=== PATIENT | male | born 1940 | race Caucasian/White ===

== ENCOUNTER 2017-06-06 16:53 | Inpatient (IN) | payer MEDICARE, MEDICAID ==
[2017-06-06] VITALS (7 sets, daily range): BP systolic 149–173; BP diastolic 77–94
[~2017-06-06] VITALS: Ht 175.3 cm; Wt 67.0 kg
[2017-06-06] MEDS ORDERED: ondansetron/PF 4mg/2ml inj IV ONE (17:20)
[2017-06-06] MEDS ORDERED: normal saline 1000ML IV soln IVB ONE (17:20)
[2017-06-06 18:20] LABS: ALANINE AMINOTRANSFERASE 30 U/L (12-78); ALBUMIN 4.3 G/DL (3.4-5.0); ALBUMIN/GLOBULIN RATIO 0.9 (1.1-1.5); ALKALINE PHOSPHATASE 114 IU/L (46-116); ANION GAP 8 (8-16); ASPARTATE AMINO TRANSFERASE 25 U/L (10-37); BILIRUBIN,TOTAL 1.1 MG/DL (0.1-1.0); BLOOD UREA NITROGEN 22 MG/DL (7-18); CHLORIDE 100 MMOL/L (99-107); GLUCOSE 133 MG/DL (70-104); LIPASE 129 U/L (73-393); SODIUM 138 MMOL/L (135-145); TOTAL PROTEIN 9.1 G/DL (6.4-8.2); eGFR 73 ML/MIN
[2017-06-06 18:26] LABS: BASOPHILS % (AUTO) 0.3 % (0-1); EOSINOPHILS # (AUTO) 0.1 X10'3 (0-0.9); EOSINOPHILS % (AUTO) 1.1 % (0-6); HEMATOCRIT 46.6 % (42.0-52.0); HEMOGLOBIN 15.9 g/dl (14.0-17.9); LYMPHOCYTES # (AUTO) 1.3 X10'3 (1.1-4.8); LYMPHOCYTES % (AUTO) 15.1 % (21-51); MEAN CORPUSCULAR HEMOGLOBIN 42.5 PG (27.0-31.0); MEAN CORPUSCULAR VOLUME 124.8 FL (78-98); MONOCYTES # (AUTO) 0.5 X10'3 (0-0.9); MONOCYTES % (AUTO) 5.5 % (2-12); NEUTROPHILS # (AUTO) 6.8 X10'3 (1.8-7.7); PLATELET COUNT 201 X10'3 (140-440); RED BLOOD COUNT 3.73 X10'6 (4.70-6.10); RED CELL DISTRIBUTION WIDTH 14.5 % (11.5-14.5); WHITE BLOOD COUNT 8.8 X10'3 (4.5-11.0)
[2017-06-06 18:37] LABS: PLATELET ESTIMATE NORMAL
[2017-06-06] MEDS ORDERED: ceFAZolin inj. 2,000 MG in dextrose 5%-water 50ml 50 ML IV ONE (18:50)
[2017-06-06] MEDS ORDERED: ceFAZolin 2gm in dextrose, iso 100 ML IV ONE (19:05)
[2017-06-06 20:35] LABS: INR 0.9 INR; PARTIAL THROMBOPLASTIN TIME 25 SECONDS (22-32); PROTHROMBIN TIME 9.8 SECONDS (9.0-12.0)
[2017-06-06] MEDS ORDERED: BUPIVAcaine/PF 2.5 mg/ml (0.25%) 30ml vial ONE (21:07)
[2017-06-06] MEDS ORDERED: LIDOcaine 1% 30ml vial 30 ML ONE (21:07)
[2017-06-06] MEDS ORDERED: ringers solution, lacted 1,000 ML IV SCH (21:09)
[2017-06-06] MEDS ORDERED: meperidine/PF 25mg/ml syringe IV PRN ×3 (21:10)
[2017-06-06] MEDS ORDERED: ondansetron/PF 4mg/2ml inj IV PRN ×3 (21:10→22:50)
[2017-06-06] MEDS ORDERED: proCHLORperazine 10 MG/2 ml inj IV PRN (21:10)
[2017-06-06] MEDS ORDERED: sevoflurane 250ml liquid IH ONE (21:16)
[2017-06-06] MEDS ORDERED: midazolam 2 mg/2 ml injection ONE (21:18)
[2017-06-06] MEDS ORDERED: propofol inj 20 ML IV ONE (21:18)
[2017-06-06] MEDS ORDERED: rocuronium 10mg/ml inj IV ONE (21:18)
[2017-06-06] MEDS ORDERED: fentaNYL/PF 50MCG/1 ML 2ML syringe ONE (21:18)
[2017-06-06] MEDS ORDERED: acetaminophen 325mg tablet PO PRN ×2 (21:25)
[2017-06-06] MEDS ORDERED: mag hydrox/Alum hydrox/simeth 30ml oral suspension PO PRN (21:25)
[2017-06-06] MEDS ORDERED: magnesium hydroxide 30ml (MOM) UD suspension PO PRN (21:25)
[2017-06-06] MEDS ORDERED: glycopyrrolate 0.2mg/ml inj ONE (22:27)
[2017-06-06] MEDS ORDERED: neostigmine methylsulfate 1 MG/ML 10ml vial ONE (22:29)
[2017-06-06] MEDS: Potassium Cl inj 20 MEQ in ringers solution, lacted 1,000 ML IV SCH (22:47)
[2017-06-06] MEDS ORDERED: CADD PCA waste documentation MC PRN (22:50)
[2017-06-06] MEDS ORDERED: naloxone 0.4 mg/ml inj IV PRN (22:50)
[2017-06-06] MEDS: HYDROmorphone/NS 1 mg/ml CADD 50 ML IV SCH ×2 (23:00→23:59)
[2017-06-07] VITALS (11 sets, daily range): BP systolic 106–149; BP diastolic 65–79
[2017-06-07] MEDS: HYDROmorphone/NS 1 mg/ml CADD 50 ML IV SCH ×7 (01:00→13:00)
[2017-06-07] MEDS: normal saline 1000ml 1,000 ML IV SCH ×2 (01:44→11:55)
[2017-06-07 05:02] LABS: BASOPHILS % (AUTO) 0.2 % (0-1); EOSINOPHILS # (AUTO) 0.1 X10'3 (0-0.9); EOSINOPHILS % (AUTO) 0.9 % (0-6); HEMATOCRIT 38.9 % (42.0-52.0); HEMOGLOBIN 13.1 g/dl (14.0-17.9); LYMPHOCYTES # (AUTO) 1.4 X10'3 (1.1-4.8); LYMPHOCYTES % (AUTO) 14.4 % (21-51); MEAN CORPUSCULAR HEMOGLOBIN 42.9 PG (27.0-31.0); MEAN CORPUSCULAR HGB CONC 33.8 % (33.0-36.5); MEAN CORPUSCULAR VOLUME 126.8 FL (78-98); MEAN PLATELET VOLUME 8.9 FL (7.4-10.4); MONOCYTES # (AUTO) 0.7 X10'3 (0-0.9); NEUTROPHILS # (AUTO) 7.7 X10'3 (1.8-7.7); NEUTROPHILS % (AUTO) 77.5 % (42-75); PLATELET COUNT 189 X10'3 (140-440); RED BLOOD COUNT 3.07 X10'6 (4.70-6.10); RED CELL DISTRIBUTION WIDTH 15.3 % (11.5-14.5); WHITE BLOOD COUNT 9.9 X10'3 (4.5-11.0)
[2017-06-07 05:22] LABS: ALANINE AMINOTRANSFERASE 68 U/L (12-78); ALBUMIN 3.1 G/DL (3.4-5.0); ALBUMIN/GLOBULIN RATIO 0.9 (1.1-1.5); ALKALINE PHOSPHATASE 82 IU/L (46-116); ANION GAP 4 (8-16); ASPARTATE AMINO TRANSFERASE 63 U/L (10-37); BILIRUBIN,TOTAL 0.9 MG/DL (0.1-1.0); BLOOD UREA NITROGEN 19 MG/DL (7-18); BUN/CREATININE RATIO 18.6 (5.4-32.0); CALCIUM 8.5 MG/DL (8.5-10.1); CHLORIDE 106 MMOL/L (99-107); CREATININE 1.02 MG/DL (0.60-1.10); GLUCOSE 104 MG/DL (70-104); SODIUM 141 MMOL/L (135-145); TOTAL PROTEIN 6.5 G/DL (6.4-8.2); eGFR 71 ML/MIN
[2017-06-07] MEDS: Potassium Cl inj 20 MEQ in ringers solution, lacted 1,000 ML IV SCH ×2 (06:52→14:57)
[2017-06-07] MEDS ORDERED: BACL10TA PO (07:40)
[2017-06-07] MEDS ORDERED: OMEP40CA37 PO (07:40)
[2017-06-07] MEDS ORDERED: LOPI1TAB2 PO (07:40)
[2017-06-07] MEDS ORDERED: LAMI1TAB PO (07:40)
[2017-06-07] MEDS ORDERED: MIRT15TA10 PO (07:40)
[2017-06-07] MEDS ORDERED: enoxaparin 40mg/0.4ml syringe SUBCUT SCH (16:00)
[2017-06-07] MEDS: cefTRIAXone 1g/NS 100ml IVPB 100 ML IV SCH (16:25)
[2017-06-07] MEDS: RITONAVIR PO SCH (20:00)
[2017-06-07] MEDS: LOPINAVIR PO SCH (20:00)
[2017-06-07] MEDS: baclofen 10mg tablet PO SCH (20:05)
[2017-06-07] MEDS ORDERED: mirtazapine 15mg tablet PO SCH (21:00)
[2017-06-07] MEDS: HYDROcodone/acetaminophen 10/325mg tab PO PRN (23:19)
[2017-06-08] VITALS: BP 127/69
[2017-06-08] MEDS: Potassium Cl inj 10 MEQ in normal saline 1000ml 1,000 ML IV SCH ×3 (01:09→12:19)
[2017-06-08] MEDS: HYDROcodone/acetaminophen 10/325mg tab PO PRN ×2 (05:38→09:23)
[2017-06-08 05:42] LABS: ALBUMIN 2.7 G/DL (3.4-5.0); ANION GAP 5 (8-16); BLOOD UREA NITROGEN 17 MG/DL (7-18); CALCIUM 8.2 MG/DL (8.5-10.1); CHLORIDE 107 MMOL/L (99-107); CREATININE 0.85 MG/DL (0.60-1.10); GLUCOSE 97 MG/DL (70-104); POTASSIUM 3.7 MMOL/L (3.5-5.1); SODIUM 139 MMOL/L (135-145); TOTAL CARBON DIOXIDE 27.2 MMOL/L (24-32); eGFR 88 ML/MIN
[2017-06-08] MEDS ORDERED: pantoprazole 40mg Tablet.DR PO SCH (07:30)
[2017-06-08 08:00] VITALS: BP 127/73
[2017-06-08] MEDS: cefTRIAXone 1g/NS 100ml IVPB 100 ML IV SCH (08:12)
[2017-06-08] MEDS: baclofen 10mg tablet PO SCH (08:12)
[2017-06-08] MEDS: LOPINAVIR PO SCH (11:10)
[2017-06-08] MEDS: RITONAVIR PO SCH (11:10)
[2017-06-08 12:06] VITALS: BP 134/90
[2017-06-08 12:26] LABS: ALANINE AMINOTRANSFERASE 68 U/L (12-78); ALBUMIN/GLOBULIN RATIO 0.8 (1.1-1.5); ALKALINE PHOSPHATASE 70 IU/L (46-116); ASPARTATE AMINO TRANSFERASE 49 U/L (10-37); BILIRUBIN,TOTAL 0.9 MG/DL (0.1-1.0); TOTAL PROTEIN 5.9 G/DL (6.4-8.2)
[2017-06-08] MEDS ORDERED: LOPINAVIR PO SCH (16:08)
[2017-06-08] MEDS ORDERED: RITONAVIR PO SCH (16:08)
[2017-06-08] MEDS ORDERED: OXYC-145 PO (16:29)
[2017-06-09] MEDS ORDERED: LACTOBACILLUS RHAMNOSUS GG 15 billion unit sprinkle caps PO SCH (07:30)
== END 2017-06-08 18:04 | disposition home or self-care (01) | DRG 419 ==
LOC: ER 16:54 → SUR 3N 21:25
PROVIDERS: ADMIT Internal Medicine; ATTEND Surgery
PROC: 0FB44ZZ Excision of Gallbladder, Percutaneous Endoscopic Approach (ICD-10-PCS; principal; 2017-06-06 21:16)
DX: K80.00 Calculus of gallbladder with acute cholecystitis without obstruction (principal); E86.0 Dehydration; I10 Essential (primary) hypertension; F12.90 Cannabis use, unspecified, uncomplicated; Z79.899 Other long term (current) drug therapy
CPT/HCPCS: 36415; 71045; 80053; 82607; 82746; 83605; 83690; 85025; 85610; 85730; 86885; 86900; 86901; 87040; 87070; 93005; 96361; 96374; 96375; 99285; A6449; A7000; J0690; J0696; J1170; J2175; J2250; J2270; J2405; J2704; J2710; J3010; J3480; J3490; J7030; J7120

== ENCOUNTER → 2017-06-06 | Outpatient (CLI) | payer MEDICARE, MEDICAID ==
[~2017-06-06] MED LIST: BACL10TA PO; LAMI1TAB PO; LOPI1TAB2 PO; MIRT15TA10 PO; OMEP40CA37 PO; OXYC-145 PO
== END ==
LOC: RAD 09:16
PROVIDERS: ATTEND Nurse Practitioner
DX: K81.0 Acute cholecystitis (principal); R10.9 Unspecified abdominal pain
CPT/HCPCS: 76700

== ENCOUNTER 2017-07-30 17:55 | Inpatient (IN) | payer MEDICARE, MEDICAID ==
[~2017-07-30] VITALS: Ht 175.3 cm; Wt 64.2 kg
[2017-07-30] MEDS ORDERED: ondansetron 4mg rapidly disintigrating tab PO ONE (18:40)
[2017-07-30 19:12] LABS: BASOPHILS % (AUTO) 0.3 % (0-1); EOSINOPHILS % (AUTO) 0.5 % (0-6); HEMATOCRIT 41.9 % (42.0-52.0); HEMOGLOBIN 14.5 g/dl (14.0-17.9); LYMPHOCYTES # (AUTO) 1.8 X10'3 (1.1-4.8); LYMPHOCYTES % (AUTO) 18.9 % (21-51); MEAN CORPUSCULAR HEMOGLOBIN 42.5 PG (27.0-31.0); MEAN CORPUSCULAR HGB CONC 34.6 % (33.0-36.5); MEAN CORPUSCULAR VOLUME 122.9 FL (78-98); MEAN PLATELET VOLUME 8.2 FL (7.4-10.4); MONOCYTES # (AUTO) 0.7 X10'3 (0-0.9); MONOCYTES % (AUTO) 7.2 % (2-12); NEUTROPHILS # (AUTO) 6.8 X10'3 (1.8-7.7); NEUTROPHILS % (AUTO) 73.1 % (42-75); PLATELET COUNT 275 X10'3 (140-440); RED BLOOD COUNT 3.41 X10'6 (4.70-6.10); RED CELL DISTRIBUTION WIDTH 15.6 % (11.5-14.5); WHITE BLOOD COUNT 9.3 X10'3 (4.5-11.0)
[2017-07-30 19:23] LABS: PROTHROMBIN TIME 10.4 SECONDS (9.0-12.0)
[2017-07-30 19:27] LABS: ALANINE AMINOTRANSFERASE 41 U/L (12-78); ALBUMIN 4.2 G/DL (3.4-5.0); ALBUMIN/GLOBULIN RATIO 0.9 (1.1-1.5); ALKALINE PHOSPHATASE 111 IU/L (46-116); ANION GAP 16 (8-16); ASPARTATE AMINO TRANSFERASE 81 U/L (10-37); BILIRUBIN,TOTAL 1.8 MG/DL (0.1-1.0); BLOOD UREA NITROGEN 21 MG/DL (7-18); BUN/CREATININE RATIO 17.9 (5.4-32.0); CALCIUM 10.2 MG/DL (8.5-10.1); CHLORIDE 99 MMOL/L (99-107); CREATININE 1.17 MG/DL (0.60-1.10); GLUCOSE 172 MG/DL (70-104); LIPASE 81 U/L (73-393); POTASSIUM 3.6 MMOL/L (3.5-5.1); SODIUM 139 MMOL/L (135-145); TOTAL CARBON DIOXIDE 23.8 MMOL/L (24-32); TOTAL PROTEIN 8.9 G/DL (6.4-8.2); eGFR 61 ML/MIN
[2017-07-30 20:00] LABS: ANISOCYTOSIS 1+; PLATELET ESTIMATE NORMAL
[2017-07-30 20:01] LABS: POLYCHROMASIA FEW
[2017-07-30] MEDS ORDERED: morphine 2 MG/ML inj. syringe IV ONE (21:35)
[2017-07-30] MEDS ORDERED: morphine 4 MG/ML inj SYRINge IV ONE (21:40)
[2017-07-30 21:53] LABS: BASOPHILS % (AUTO) 0.1 % (0-1); EOSINOPHILS # (AUTO) 0.1 X10'3 (0-0.9); EOSINOPHILS % (AUTO) 1.7 % (0-6); HEMATOCRIT 43.2 % (42.0-52.0); HEMOGLOBIN 14.9 g/dl (14.0-17.9); LYMPHOCYTES # (AUTO) 1.3 X10'3 (1.1-4.8); LYMPHOCYTES % (AUTO) 15.5 % (21-51); MEAN CORPUSCULAR HEMOGLOBIN 42.2 PG (27.0-31.0); MEAN CORPUSCULAR HGB CONC 34.5 % (33.0-36.5); MEAN CORPUSCULAR VOLUME 122.3 FL (78-98); MEAN PLATELET VOLUME 8.1 FL (7.4-10.4); MONOCYTES # (AUTO) 0.7 X10'3 (0-0.9); MONOCYTES % (AUTO) 7.7 % (2-12); NEUTROPHILS # (AUTO) 6.5 X10'3 (1.8-7.7); PLATELET COUNT 259 X10'3 (140-440); RED BLOOD COUNT 3.53 X10'6 (4.70-6.10); RED CELL DISTRIBUTION WIDTH 15.3 % (11.5-14.5); WHITE BLOOD COUNT 8.6 X10'3 (4.5-11.0)
[2017-07-30 22:05] LABS: PARTIAL THROMBOPLASTIN TIME 23 SECONDS (22-32)
[2017-07-30] MEDS ORDERED: diphenhydrAMINE 50 mg/ml inj IV ONE (22:25)
[2017-07-30] MEDS ORDERED: proCHLORperazine 10 MG/2 ml inj IV ONE (22:25)
[2017-07-30] MEDS ORDERED: ringers solution, lactated 1000ml IV soln IV ONE (23:05)
[2017-07-30] MEDS ORDERED: famotidine/PF 10 mg/ml inj IV ONE (23:05)
[2017-07-31] MEDS: normal saline 1000ml 1,000 ML IV SCH ×3 (00:18→20:18)
[2017-07-31] MEDS ORDERED: ondansetron/PF 4mg/2ml inj IV PRN (00:20)
[2017-07-31] MEDS: piperacillin/tazo 3.375gm/50ml 50 ML IV SCH ×4 (00:25→23:15)
[2017-07-31] MEDS ORDERED: non-formulary drug (Omeprazole (Prilosec) 0.5 CAP) PO SCH (08:00)
[2017-07-31] MEDS: pantoprazole 40mg Tablet.DR PO SCH (08:00)
[2017-07-31 08:01] LABS: CLARITY,URINE CLEAR (Clear); COLOR,URINE YELLOW (Yellow); GLUCOSE, URINE NEGATIVE (Neg); KETONES,URINE NEGATIVE (Neg); LEUKOCYTE ESTERASE ,URINE NEGATIVE (Neg); NITRITES, URINE NEGATIVE (Neg); OCCULT BLOOD,URINE MODERATE (Neg); PROTEIN,URINE 100 mg/dl (Neg); UROBILINOGEN,URINE 0.2 E.U/dL (0.2-1.0)
[2017-07-31] MEDS ORDERED: ZOLP10TA5 (08:10)
[2017-07-31 08:13] LABS: UA COLLECTION TYPE CLN CATCH MIDSTREAM
[2017-07-31 08:21] LABS: WBC,URINE 0-4 /HPF (0-4)
[2017-07-31 08:22] LABS: BACTERIA,URINE NONE SEEN /HPF (Neg); RBC,URINE 0-2 /HPF (0-2); SQUAMOUS EPITHELIAL CELL,UR FEW /LPF (FEW)
[2017-07-31] MEDS: RITONAVIR PO SCH ×2 (08:52→20:58)
[2017-07-31] MEDS: LOPINAVIR PO SCH ×2 (08:52→20:58)
[2017-07-31 13:08] VITALS: BP 128/68
[2017-07-31 20:00] VITALS: BP_SYST 118; BP_SYST 129; BP_DIAS 72; BP_DIAS 84
[2017-07-31] MEDS: mirtazapine 15mg tablet PO SCH (20:58)
[2017-07-31] MEDS: heparin, porcine 5000 units/ml vial SQ SCH (20:59)
[2017-07-31] MEDS: lactobacillus rhamnosus 10,000 MMU CELLS/CAPSULE PO SCH (20:59)
[2017-07-31 23:00] VITALS: BP 126/77
[2017-07-31] MEDS: zolpidem 5mg tablet PO PRN (23:14)
[2017-08-01] MEDS: normal saline 1000ml 1,000 ML IV SCH ×2 (01:01→16:30)
[2017-08-01 05:38] LABS: BASOPHILS % (AUTO) 0.1 % (0-1); EOSINOPHILS # (AUTO) 0.1 X10'3 (0-0.9); EOSINOPHILS % (AUTO) 1.6 % (0-6); HEMATOCRIT 34.1 % (42.0-52.0); HEMOGLOBIN 11.9 g/dl (14.0-17.9); LYMPHOCYTES # (AUTO) 1.6 X10'3 (1.1-4.8); LYMPHOCYTES % (AUTO) 27.8 % (21-51); MEAN CORPUSCULAR HEMOGLOBIN 43.4 PG (27.0-31.0); MEAN CORPUSCULAR VOLUME 123.9 FL (78-98); MEAN PLATELET VOLUME 8.4 FL (7.4-10.4); MONOCYTES # (AUTO) 0.5 X10'3 (0-0.9); MONOCYTES % (AUTO) 9.3 % (2-12); NEUTROPHILS # (AUTO) 3.6 X10'3 (1.8-7.7); NEUTROPHILS % (AUTO) 61.2 % (42-75); PLATELET COUNT 197 X10'3 (140-440); RED BLOOD COUNT 2.75 X10'6 (4.70-6.10); RED CELL DISTRIBUTION WIDTH 15.2 % (11.5-14.5); WHITE BLOOD COUNT 5.8 X10'3 (4.5-11.0)
[2017-08-01 05:52] LABS: ALANINE AMINOTRANSFERASE 42 U/L (12-78); ALBUMIN 3.1 G/DL (3.4-5.0); ALBUMIN/GLOBULIN RATIO 0.9 (1.1-1.5); ALKALINE PHOSPHATASE 85 IU/L (46-116); ANION GAP 10 (8-16); ASPARTATE AMINO TRANSFERASE 83 U/L (10-37); BILIRUBIN,TOTAL 2.9 MG/DL (0.1-1.0); BLOOD UREA NITROGEN 17 MG/DL (7-18); BUN/CREATININE RATIO 14.9 (5.4-32.0); CALCIUM 8.6 MG/DL (8.5-10.1); CHLORIDE 106 MMOL/L (99-107); CREATININE 1.14 MG/DL (0.60-1.10); GLUCOSE 89 MG/DL (70-104); POTASSIUM 3.2 MMOL/L (3.5-5.1); SODIUM 145 MMOL/L (135-145); TOTAL CARBON DIOXIDE 28.6 MMOL/L (24-32); TOTAL PROTEIN 6.7 G/DL (6.4-8.2); eGFR 62 ML/MIN
[2017-08-01] MEDS: piperacillin/tazo 3.375gm/50ml 50 ML IV SCH ×3 (07:17→23:28)
[2017-08-01] MEDS: lactobacillus rhamnosus 10,000 MMU CELLS/CAPSULE PO SCH ×2 (07:17→20:34)
[2017-08-01] MEDS: pantoprazole 40mg Tablet.DR PO SCH (07:17)
[2017-08-01] MEDS: heparin, porcine 5000 units/ml vial SQ SCH ×2 (07:18→20:35)
[2017-08-01] MEDS: RITONAVIR PO SCH ×2 (07:30→20:34)
[2017-08-01] MEDS: LOPINAVIR PO SCH ×2 (07:30→20:34)
[2017-08-01 08:00] VITALS: BP_SYST 107; BP_SYST 173; BP_DIAS 65; BP_DIAS 79
[2017-08-01 11:00] VITALS: BP 107/65
[2017-08-01 11:13] LABS: PLATELET ESTIMATE NORMAL
[2017-08-01] MEDS ORDERED: potassium Cl 40MEQ/NS 500ml 500 ML IV PRN ×2 (17:10)
[2017-08-01] MEDS ORDERED: potassium Cl 20 mEq SR tablet PO PRN ×2 (17:10)
[2017-08-01 19:00] VITALS: BP_SYST 141; BP_SYST 144; BP_DIAS 72; BP_DIAS 78
[2017-08-01] MEDS: mirtazapine 15mg tablet PO SCH (20:34)
[2017-08-01] MEDS: morphine 4 MG/ML inj SYRINge IV PRN (21:48)
[2017-08-01] MEDS: zolpidem 5mg tablet PO PRN (23:28)
[2017-08-02] VITALS: BP_SYST 123; BP_SYST 153; BP_DIAS 62; BP_DIAS 66
[2017-08-02] MEDS: normal saline 1000ml 1,000 ML IV SCH ×3 (02:18→21:34)
[2017-08-02 04:32] LABS: BASOPHILS % (AUTO) 0.3 % (0-1); EOSINOPHILS # (AUTO) 0.1 X10'3 (0-0.9); EOSINOPHILS % (AUTO) 2.7 % (0-6); HEMATOCRIT 32.9 % (42.0-52.0); HEMOGLOBIN 11.5 g/dl (14.0-17.9); LYMPHOCYTES # (AUTO) 1.5 X10'3 (1.1-4.8); MEAN CORPUSCULAR HEMOGLOBIN 42.5 PG (27.0-31.0); MEAN CORPUSCULAR HGB CONC 34.8 % (33.0-36.5); MEAN CORPUSCULAR VOLUME 121.9 FL (78-98); MEAN PLATELET VOLUME 7.8 FL (7.4-10.4); MONOCYTES # (AUTO) 0.6 X10'3 (0-0.9); MONOCYTES % (AUTO) 11.1 % (2-12); NEUTROPHILS # (AUTO) 2.7 X10'3 (1.8-7.7); NEUTROPHILS % (AUTO) 54.9 % (42-75); PLATELET COUNT 182 X10'3 (140-440); RED CELL DISTRIBUTION WIDTH 15.2 % (11.5-14.5)
[2017-08-02 04:50] LABS: ALANINE AMINOTRANSFERASE 39 U/L (12-78); ALBUMIN 2.9 G/DL (3.4-5.0); ALBUMIN/GLOBULIN RATIO 0.9 (1.1-1.5); ALKALINE PHOSPHATASE 77 IU/L (46-116); ANION GAP 8 (8-16); ASPARTATE AMINO TRANSFERASE 59 U/L (10-37); BILIRUBIN,DIRECT 0.3 MG/DL (0-0.3); BLOOD UREA NITROGEN 13 MG/DL (7-18); BUN/CREATININE RATIO 12.5 (5.4-32.0); CALCIUM 8.4 MG/DL (8.5-10.1); CHLORIDE 109 MMOL/L (99-107); CREATININE 1.04 MG/DL (0.60-1.10); GLUCOSE 91 MG/DL (70-104); MAGNESIUM 1.8 MG/DL (1.5-2.4); POTASSIUM 3.7 MMOL/L (3.5-5.1); SODIUM 144 MMOL/L (135-145); TOTAL CARBON DIOXIDE 27.1 MMOL/L (24-32); TOTAL PROTEIN 6.3 G/DL (6.4-8.2); eGFR 69 ML/MIN
[2017-08-02 07:30] VITALS: BP 140/65
[2017-08-02] MEDS: pantoprazole 40mg Tablet.DR PO SCH (08:24)
[2017-08-02] MEDS: lactobacillus rhamnosus 10,000 MMU CELLS/CAPSULE PO SCH ×2 (08:25→21:39)
[2017-08-02] MEDS: piperacillin/tazo 3.375gm/50ml 50 ML IV SCH ×2 (08:25→15:29)
[2017-08-02] MEDS: LOPINAVIR PO SCH ×2 (08:26→21:42)
[2017-08-02] MEDS: heparin, porcine 5000 units/ml vial SQ SCH ×2 (08:26→21:39)
[2017-08-02] MEDS: RITONAVIR PO SCH ×2 (08:26→21:42)
[2017-08-02] MEDS: morphine 4 MG/ML inj SYRINge IV PRN ×2 (08:28→16:12)
[2017-08-02 12:11] VITALS: BP 131/53
[2017-08-02 20:00] VITALS: BP 132/70
[2017-08-02] MEDS: mirtazapine 15mg tablet PO SCH (21:38)
[2017-08-03] VITALS: BP 149/81
[2017-08-03] MEDS: piperacillin/tazo 3.375gm/50ml 50 ML IV SCH ×2 (00:01→08:37)
[2017-08-03] MEDS: zolpidem 5mg tablet PO PRN (00:01)
[2017-08-03 05:44] LABS: BASOPHILS % (AUTO) 0.2 % (0-1); EOSINOPHILS # (AUTO) 0.2 X10'3 (0-0.9); EOSINOPHILS % (AUTO) 4.9 % (0-6); HEMATOCRIT 33.9 % (42.0-52.0); HEMOGLOBIN 11.8 g/dl (14.0-17.9); LYMPHOCYTES # (AUTO) 1.5 X10'3 (1.1-4.8); LYMPHOCYTES % (AUTO) 32.7 % (21-51); MEAN CORPUSCULAR HEMOGLOBIN 43.5 PG (27.0-31.0); MEAN CORPUSCULAR HGB CONC 34.9 % (33.0-36.5); MEAN CORPUSCULAR VOLUME 124.5 FL (78-98); MEAN PLATELET VOLUME 8.3 FL (7.4-10.4); MONOCYTES # (AUTO) 0.4 X10'3 (0-0.9); MONOCYTES % (AUTO) 9.3 % (2-12); NEUTROPHILS # (AUTO) 2.5 X10'3 (1.8-7.7); NEUTROPHILS % (AUTO) 52.9 % (42-75); PLATELET COUNT 183 X10'3 (140-440); RED BLOOD COUNT 2.72 X10'6 (4.70-6.10); RED CELL DISTRIBUTION WIDTH 15.1 % (11.5-14.5); WHITE BLOOD COUNT 4.7 X10'3 (4.5-11.0)
[2017-08-03 06:11] LABS: ALANINE AMINOTRANSFERASE 40 U/L (12-78); ALBUMIN 2.9 G/DL (3.4-5.0); ALBUMIN/GLOBULIN RATIO 0.8 (1.1-1.5); ALKALINE PHOSPHATASE 74 IU/L (46-116); ANION GAP 11 (8-16); ASPARTATE AMINO TRANSFERASE 43 U/L (10-37); BILIRUBIN,TOTAL 1.3 MG/DL (0.1-1.0); BLOOD UREA NITROGEN 9 MG/DL (7-18); BUN/CREATININE RATIO 8.5 (5.4-32.0); CALCIUM 8.6 MG/DL (8.5-10.1); CHLORIDE 108 MMOL/L (99-107); CREATININE 1.06 MG/DL (0.60-1.10); GLUCOSE 99 MG/DL (70-104); MAGNESIUM 1.8 MG/DL (1.5-2.4); POTASSIUM 3.4 MMOL/L (3.5-5.1); SODIUM 145 MMOL/L (135-145); TOTAL PROTEIN 6.4 G/DL (6.4-8.2); eGFR 68 ML/MIN
[2017-08-03 07:00] VITALS: BP 123/62
[2017-08-03] MEDS: normal saline 1000ml 1,000 ML IV SCH (08:33)
[2017-08-03] MEDS: heparin, porcine 5000 units/ml vial SQ SCH (08:37)
[2017-08-03] MEDS: pantoprazole 40mg Tablet.DR PO SCH (08:37)
[2017-08-03] MEDS: lactobacillus rhamnosus 10,000 MMU CELLS/CAPSULE PO SCH (08:37)
[2017-08-03] MEDS: LOPINAVIR PO SCH (08:40)
[2017-08-03] MEDS: RITONAVIR PO SCH (08:40)
[2017-08-03] MEDS: morphine 4 MG/ML inj SYRINge IV PRN (08:45)
[2017-08-03] MEDS ORDERED: METR500T4 PO (10:59)
[2017-08-03 11:00] VITALS: BP 134/84
== END 2017-08-03 13:30 | disposition home or self-care (01) | DRG 392 ==
LOC: ER 17:57 → ED HOLD 07-31 00:18 → SUR 3N 07-31 12:52
PROVIDERS: ADMIT Internal Medicine; ATTEND Internal Medicine
DX: R11.2 Nausea with vomiting, unspecified (principal); E86.0 Dehydration; F12.90 Cannabis use, unspecified, uncomplicated; K30 Functional dyspepsia; R91.8 Other nonspecific abnormal finding of lung field; Z90.49 Acquired absence of other specified parts of digestive tract; Z79.899 Other long term (current) drug therapy
CPT/HCPCS: 36415; 71045; 74176; 74181; 78264; 80053; 81001; 82248; 83690; 83735; 84484; 85025; 85610; 85730; 87070; 96361; 96374; 96375; 99285; A9541; J0780; J1200; J1644; J2270; J2543; J3480; J3490; J7030; J7120

== ENCOUNTER 2019-06-04 09:57 | Emergency (ER) | payer MEDICARE, MEDICAID ==
[~2019-06-04] VITALS: Ht 175.3 cm; Wt 65.9 kg
[~2019-06-04 09:57] MED LIST changes: +MIRT-66 PO; -MIRT15TA10 PO; +OMEP40CA13 PO; -OMEP40CA37 PO; +ZOLP10TA5
[2019-06-04 10:48] LABS: COLOR,URINE YELLOW (Yellow); GLUCOSE, URINE 100 mg/dl (Neg); KETONES,URINE NEGATIVE (Neg); LEUKOCYTE ESTERASE ,URINE TRACE (Neg); NITRITES, URINE POSITIVE (Neg); OCCULT BLOOD,URINE TRACE-INTACT (Neg); PROTEIN,URINE TRACE mg/dl (Neg); UROBILINOGEN,URINE 0.2 E.U/dL (0.2-1.0)
[2019-06-04 10:49] LABS: CLARITY,URINE SLIGHTLY CLOUDY (Clear); UA COLLECTION TYPE VOIDED
[2019-06-04 10:49] LABS: BASOPHILS % (AUTO) 0.3 % (0-1); EOSINOPHILS % (AUTO) 0.5 % (0-6); HEMATOCRIT 37.4 % (42.0-52.0); HEMOGLOBIN 12.8 g/dl (14.0-17.9); LYMPHOCYTES # (AUTO) 1.5 X10'3 (1.1-4.8); LYMPHOCYTES % (AUTO) 22.3 % (21-51); MEAN CORPUSCULAR HEMOGLOBIN 33.5 PG (27.0-31.0); MEAN CORPUSCULAR HGB CONC 34.2 g/dL (33.0-36.5); MEAN CORPUSCULAR VOLUME 97.9 FL (78-98); MEAN PLATELET VOLUME 9.6 FL (7.4-10.4); MONOCYTES # (AUTO) 0.8 X10'3 (0-0.9); MONOCYTES % (AUTO) 11.5 % (2-12); NEUTROPHILS # (AUTO) 4.5 X10'3 (1.8-7.7); NEUTROPHILS % (AUTO) 65.4 % (42-75); PLATELET COUNT 207 X10'3 (140-440); RED BLOOD COUNT 3.82 X10'6 (4.70-6.10); RED CELL DISTRIBUTION WIDTH 14.8 % (11.5-14.5); WHITE BLOOD COUNT 6.9 X10'3 (4.5-11.0)
[2019-06-04 11:00] LABS: ALANINE AMINOTRANSFERASE 36 U/L (12-78); ALBUMIN 3.4 G/DL (3.4-5.0); ALBUMIN/GLOBULIN RATIO 0.9 (1.1-1.5); ALKALINE PHOSPHATASE 128 IU/L (46-116); ANION GAP 9 (8-16); ASPARTATE AMINO TRANSFERASE 39 U/L (10-37); BILIRUBIN,TOTAL 0.5 MG/DL (0.1-1.0); BLOOD UREA NITROGEN 14 MG/DL (7-18); BUN/CREATININE RATIO 11.5 (5.4-32.0); CALCIUM 8.8 MG/DL (8.5-10.1); CHLORIDE 104 MMOL/L (99-107); CREATININE 1.22 MG/DL (0.60-1.10); GLUCOSE 152 MG/DL (70-104); LIPASE 277 U/L (73-393); SODIUM 142 MMOL/L (135-145); TOTAL CARBON DIOXIDE 28.7 MMOL/L (24-32); TOTAL PROTEIN 7.4 G/DL (6.4-8.2); eGFR 58 ML/MIN
[2019-06-04 11:03] LABS: HYALINE CASTS 0-3 /LPF (NEGATIVE); MUCUS STRANDS FEW /LPF (Neg); SQUAMOUS EPITHELIAL CELL,UR FEW /LPF (FEW)
[2019-06-04 11:06] LABS: BACTERIA,URINE 2+ /HPF (Neg)
[2019-06-04 11:07] LABS: AMORPHOUS PHOSPHATES 1+; RBC,URINE 0-2 /HPF (0-2)
[2019-06-04 11:08] LABS: WBC CLUMPS,URINE FEW /HPF (NEGATIVE)
[2019-06-04 12:05] VITALS: BP 142/77
[2019-06-04] MEDS ORDERED: potassium Cl 20 mEq SR tablet PO STA (13:09)
[2019-06-04] MEDS ORDERED: CEPH-572 PO (13:09)
[2019-06-04] MEDS ORDERED: cephalexin 250mg capsule PO ONE (13:10)
== END 2019-06-04 13:51 | disposition home or self-care (01) ==
LOC: ER 09:57
DX: N39.0 Urinary tract infection, site not specified (principal); E87.6 Hypokalemia; R11.2 Nausea with vomiting, unspecified; F12.90 Cannabis use, unspecified, uncomplicated; F15.90 Other stimulant use, unspecified, uncomplicated; Z79.899 Other long term (current) drug therapy; Z90.49 Acquired absence of other specified parts of digestive tract
CPT/HCPCS: 36415; 51702; 80053; 81001; 83690; 85025; 87088; 99283; 99284

== ENCOUNTER 2020-08-10 10:14 | Day surgery (SDC) | payer MEDICARE, MEDICAID ==
[2020-07-28 17:03] LABS: BASOPHILS % (AUTO) 0.7 % (0-1); EOSINOPHILS # (AUTO) 0.4 X10'3 (0-0.9); EOSINOPHILS % (AUTO) 7.2 % (0-6); LYMPHOCYTES # (AUTO) 2.1 X10'3 (1.1-4.8); LYMPHOCYTES % (AUTO) 34.4 % (21-51); MEAN CORPUSCULAR HEMOGLOBIN 33.2 PG (27.0-31.0); MEAN CORPUSCULAR HGB CONC 34.1 g/dL (33.0-36.5); MEAN CORPUSCULAR VOLUME 97.2 FL (78-98); MEAN PLATELET VOLUME 9.7 FL (7.4-10.4); MONOCYTES # (AUTO) 0.8 X10'3 (0-0.9); MONOCYTES % (AUTO) 12.4 % (2-12); NEUTROPHILS # (AUTO) 2.8 X10'3 (1.8-7.7); NEUTROPHILS % (AUTO) 45.3 % (42-75); PRE OP HEMATOCRIT 44.6 % (42.0-52.0); PRE OP HEMOGLOBIN 15.2 g/dL (14.0-17.9); PRE OP PLATELET COUNT 208 X10'3 (140-440); RED BLOOD COUNT 4.59 X10'6 (4.70-6.10); RED CELL DISTRIBUTION WIDTH 13.5 % (11.5-14.5)
[2020-07-28 17:05] LABS: PRE OP PROTIME 10.3 SECONDS (9.0-12.0)
[2020-07-28 17:08] LABS: ALBUMIN 3.7 G/DL (3.4-5.0); ALBUMIN/GLOBULIN RATIO 0.8 (1.1-1.5); ALKALINE PHOSPHATASE 132 IU/L (46-116); BLOOD UREA NITROGEN 22 MG/DL (7-18); CALCIUM 9.2 MG/DL (8.5-10.1); CHLORIDE 105 MMOL/L (99-107); CREATININE 1.22 MG/DL (0.60-1.10); PRE OP ALT 34 U/L (30-65); PRE OP ANION GAP 8 (8-16); PRE OP AST 25 U/L (10-37); PRE OP BILIRUB, TOTAL 0.8 MG/DL (0.0-1.0); PRE OP GLUCOSE 123 MG/DL (70-104); PRE OP POTASSIUM 3.7 MMOL/L (3.4-5.1); PRE OP SODIUM 141 MMOL/L (135-145); TOTAL CARBON DIOXIDE 27.8 MMOL/L (24-32); TOTAL PROTEIN 8.1 G/DL (6.4-8.2); eGFR 57 ML/MIN
[~2020-08-10] VITALS: Ht 177.8 cm; Wt 77.1 kg
[2020-08-10] VITALS (11 sets, daily range): BP systolic 131–143; BP diastolic 66–81
[~2020-08-10 10:14] MED LIST changes: +ASPI-1397 PO; +ATOR40TA72 PO; -BACL10TA PO; +BICT1TAB PO; +CARV3.122 PO; +CLOP75TA34 PO; +DOCUMENT DATE & TIME OF BETA-BLOCKER PO ONE; -LAMI1TAB PO; -LOPI1TAB2 PO; +LOSA25TA41 PO; -OMEP40CA13 PO; -OXYC-145 PO; +PANT40TA54 PO; -ZOLP10TA5; +ceFAZolin 2gm in dextrose, iso 50 ML IV ONE; +famotidine 20mg tablet PO ONE; +ringers solution, lacted 1,000 ML IV SCH
[2020-08-10] MEDS ORDERED: acetaminophen 1,000mg/100ml IV 100 ML IV ONE (12:01)
[2020-08-10] MEDS ORDERED: morphine 2 MG/ML inj. syringe IV PRN (12:40)
[2020-08-10] MEDS ORDERED: proCHLORperazine 10 MG/2 ml inj IV PRN (12:40)
[2020-08-10] MEDS ORDERED: ondansetron/PF 4mg/2ml inj IV PRN (12:40)
[2020-08-10] MEDS ORDERED: morphine 4 MG/ML inj SYRINge IV PRN (12:40)
[2020-08-10] MEDS ORDERED: meperidine/PF 25mg/ml syringe IV PRN ×3 (12:40)
[2020-08-10] MEDS ORDERED: ringers solution, lacted 1,000 ML IV SCH (12:40)
[2020-08-10] MEDS ORDERED: LIDOcaine 1% 30ml preserv. free vial ONE (12:52)
[2020-08-10] MEDS ORDERED: BUPIVAcaine/PF 2.5 mg/ml (0.25%) 30ml vial ONE (12:52)
[2020-08-10] MEDS ORDERED: fentaNYL/PF 50MCG/1 ML 2ML syringe ONE (13:12)
[2020-08-10] MEDS ORDERED: midazolam 1 mg/ML 2ml injection ONE (13:12)
[2020-08-10] MEDS ORDERED: propofol inj 20 ML IV ONE (13:15)
[2020-08-10] MEDS ORDERED: LIDOcaine 2% (20mg/ml) 5ml vial ONE (13:15)
[2020-08-10] MEDS ORDERED: rocuronium 10mg/ml inj IV ONE (13:23)
[2020-08-10] MEDS ORDERED: ondansetron/PF 4mg/2ml inj ONE (13:24)
[2020-08-10] MEDS ORDERED: dexamethasone sod phosphate 4mg/ml inj. ONE (13:24)
[2020-08-10] MEDS ORDERED: HYDROcodone/acetaminophen 5mg/325mg tablet PO PRN ×2 (14:25)
--- NOTE | 2020-08-10 14:35 | NUR ---
Received from OR via BED , accompanied by Anesthesiologist DR FONG and report given by Anesthesiolgist. PATIENT WAKING UP, DENIES PAIN, V/S WNL, NEUROVASCULAR CHECKS INTACT, 20G PIV RUE, SCD ON, BANDAIDS TO LAP SIGHTS OF ABDOMEN CDI.
--- NOTE | 2020-08-10 14:35 | NUR ---
CORRECTION, PATIENT C/O PAIN 12/04 TO ABDOMNE SEE EMAR
--- NOTE | 2020-08-10 16:45 | NUR ---
PATIENT a&ox4, DENIES PAIN, V/S WNL, NEUROVASCULAR CHECKS INTACT, 20G PIV RUE d/c, SCD Off, BANDAIDS TO LAP SIGHTS OF ABDOMEN CDI. patient was unable to void after bladder scan for 350, f/c placed per dr mays orders, patient given education of f/c care and maintanance and verbalized understanding. patient given d/c education and f/c care handout and script for pain and verbalized understanding and was d/c home with all belongings. he was instructed to come back to dr higginbotham office in 24 hours for f/c removal in office.
== END 2020-08-10 16:45 | disposition home or self-care (01) ==
LOC: PAS 10:14
PROVIDERS: ATTEND Surgery
DX: K40.90 Unilateral inguinal hernia, without obstruction or gangrene, not specified as recurrent (principal); K42.9 Umbilical hernia without obstruction or gangrene; K21.9 Gastro-esophageal reflux disease without esophagitis; I10 Essential (primary) hypertension; J44.9 Chronic obstructive pulmonary disease, unspecified; I25.10 Atherosclerotic heart disease of native coronary artery without angina pectoris; F12.90 Cannabis use, unspecified, uncomplicated; E78.5 Hyperlipidemia, unspecified; I25.2 Old myocardial infarction; F32.9 Major depressive disorder, single episode, unspecified; M19.90 Unspecified osteoarthritis, unspecified site; Z95.5 Presence of coronary angioplasty implant and graft; Z87.442 Personal history of urinary calculi; Z79.899 Other long term (current) drug therapy; Z20.822 Contact with and (suspected) exposure to COVID-19; Z90.49 Acquired absence of other specified parts of digestive tract; Z79.01 Long term (current) use of anticoagulants; Z79.82 Long term (current) use of aspirin; Z91.030 Bee allergy status; Z88.5 Allergy status to narcotic agent
CPT/HCPCS: 36415; 49585; 49650; 80053; 82948; 85025; 85610; 85730; 87635; 93005; C1781; J0131; J1100; J2001; J2175; J2250; J2405; J2704; J3010; J3490; J7120; A4215; A4618; A7000

== ENCOUNTER 2020-08-11 08:29 | Emergency (ER) | payer MEDICARE, MEDICAID ==
[~2020-08-11] VITALS: Ht 175.3 cm; Wt 68.2 kg
[~2020-08-11 08:29] MED LIST changes: -DOCUMENT DATE & TIME OF BETA-BLOCKER PO ONE; -ceFAZolin 2gm in dextrose, iso 50 ML IV ONE; -famotidine 20mg tablet PO ONE; -ringers solution, lacted 1,000 ML IV SCH
[2020-08-11 10:28] VITALS: BP 116/77
== END 2020-08-11 11:00 | disposition home or self-care (01) ==
LOC: ER 08:29
DX: S37.39XA Other injury of urethra, initial encounter (principal); R45.1 Restlessness and agitation; Z79.82 Long term (current) use of aspirin; Z79.899 Other long term (current) drug therapy; Y73.1 Therapeutic (nonsurgical) and rehabilitative gastroenterology and urology devices associated with adverse incidents; Y84.6 Urinary catheterization as the cause of abnormal reaction of the patient, or of later complication, without mention of misadventure at the time of the procedure; Y92.89 Other specified places as the place of occurrence of the external cause; Y93.89 Activity, other specified; Y99.8 Other external cause status
CPT/HCPCS: 51702; 99284

== ENCOUNTER 2020-08-20 16:34 | Emergency (ER) | payer MEDICARE, MEDICAID ==
[~2020-08-20] VITALS: Ht 175.3 cm; Wt 77.3 kg
[2020-08-20] MEDS ORDERED: HYDR-3972 PO (17:13)
[2020-08-20 18:56] VITALS: BP 149/85
== END 2020-08-20 18:59 | disposition home or self-care (01) ==
LOC: ER 16:35
DX: R10.31 Right lower quadrant pain (principal); F12.90 Cannabis use, unspecified, uncomplicated; F15.90 Other stimulant use, unspecified, uncomplicated; Z90.49 Acquired absence of other specified parts of digestive tract; Z98.890 Other specified postprocedural states; Z79.82 Long term (current) use of aspirin; Z79.899 Other long term (current) drug therapy
CPT/HCPCS: 72192; 99284

== ENCOUNTER 2020-10-25 07:06 | Emergency (ER) | payer MEDICARE, MEDICAID ==
[~2020-10-25] VITALS: Ht 172.7 cm; Wt 71.5 kg
[2020-10-25 08:28] LABS: BASOPHILS % (AUTO) 0.5 % (0-1); EOSINOPHILS # (AUTO) 0.2 X10'3 (0-0.9); EOSINOPHILS % (AUTO) 3.7 % (0-6); HEMATOCRIT 43.6 % (42.0-52.0); HEMOGLOBIN 14.7 g/dl (14.0-17.9); LYMPHOCYTES # (AUTO) 1.4 X10'3 (1.1-4.8); MEAN CORPUSCULAR HEMOGLOBIN 33.5 PG (27.0-31.0); MEAN CORPUSCULAR HGB CONC 33.7 g/dL (33.0-36.5); MEAN CORPUSCULAR VOLUME 99.2 FL (78-98); MEAN PLATELET VOLUME 9.5 FL (7.4-10.4); MONOCYTES # (AUTO) 0.5 X10'3 (0-0.9); MONOCYTES % (AUTO) 10.8 % (2-12); NEUTROPHILS # (AUTO) 2.8 X10'3 (1.8-7.7); PLATELET COUNT 164 X10'3 (140-440); RED CELL DISTRIBUTION WIDTH 13.2 % (11.5-14.5); WHITE BLOOD COUNT 4.9 X10'3 (4.5-11.0)
[2020-10-25 08:36] LABS: URINE AMPHETAMINE SCREEN POSITIVE (Neg); URINE BARBITUATE SCREEN NEGATIVE (Neg); URINE BENZODIAZEPINES SCREEN NEGATIVE (Neg); URINE CANNABINOID SCREEN POSITIVE (Neg); URINE COCAINE SCREEN NEGATIVE (Neg); URINE METHADONE SCREEN NEGATIVE (Neg); URINE OPIATE SCREEN NEGATIVE (Neg); URINE PHENCYCLIDINE SCREEN NEGATIVE (Neg)
--- NOTE | 2020-10-25 08:38 | NUR ---
to ct via wheelchair
[2020-10-25 08:50] LABS: ALANINE AMINOTRANSFERASE 33 U/L (12-78); ALBUMIN 3.5 G/DL (3.4-5.0); ALBUMIN/GLOBULIN RATIO 0.9 (1.1-1.5); ALKALINE PHOSPHATASE 134 IU/L (46-116); ANION GAP 10 (8-16); ASPARTATE AMINO TRANSFERASE 32 U/L (10-37); BILIRUBIN,TOTAL 1.2 MG/DL (0.1-1.0); BLOOD UREA NITROGEN 19 MG/DL (7-18); CALCIUM 8.9 MG/DL (8.5-10.1); CHLORIDE 106 MMOL/L (99-107); CREATININE 1.36 MG/DL (0.60-1.10); ETHANOL < 0.010 GM/DL (0.0-0.010); GLUCOSE 153 MG/DL (70-104); SODIUM 142 MMOL/L (135-145); TOTAL CARBON DIOXIDE 25.8 MMOL/L (24-32); TOTAL PROTEIN 7.3 G/DL (6.4-8.2); eGFR 51 ML/MIN
[2020-10-25 08:51] LABS: POTASSIUM 3.6 MMOL/L (3.5-5.1)
[2020-10-25] MEDS ORDERED: METR500T PO (09:48)
[2020-10-25] MEDS ORDERED: CIPR-259 PO (09:48)
[2020-10-25 09:58] VITALS: BP 155/89
== END 2020-10-25 10:00 | disposition home or self-care (01) ==
LOC: ER 07:06
DX: K52.9 Noninfective gastroenteritis and colitis, unspecified (principal); F12.10 Cannabis abuse, uncomplicated; F15.10 Other stimulant abuse, uncomplicated; Z87.01 Personal history of pneumonia (recurrent); Z21 Asymptomatic human immunodeficiency virus [HIV] infection status; Z90.49 Acquired absence of other specified parts of digestive tract; Z98.890 Other specified postprocedural states; Z79.82 Long term (current) use of aspirin; Z79.899 Other long term (current) drug therapy
CPT/HCPCS: 36415; 74018; 74176; 80053; 80305; 80320; 85025; 99285

== ENCOUNTER → 2021-01-30 | Emergency (ER) | payer MEDICARE, MEDICAID ==
[~2021-01-30] VITALS: Ht 175.3 cm; Wt 70.0 kg
[2021-01-30 11:27] VITALS: BP 110/75
== END | disposition left against medical advice (07) ==
LOC: ER 11:19
DX: R10.84 Generalized abdominal pain (principal); Z53.21 Procedure and treatment not carried out due to patient leaving prior to being seen by health care provider
CPT/HCPCS: 93005

== ENCOUNTER 2022-07-07 12:22 | Emergency (ER) | payer MEDICARE, MEDICAID ==
[~2022-07-07] VITALS: Ht 175.3 cm; Wt 72.7 kg
[2022-07-07 12:44] VITALS: BP 136/76
[2022-07-07] MEDS ORDERED: HYDROcodone/acetaminophen 5mg/325mg tablet PO ONE (13:45)
[2022-07-07 14:29] LABS: BASOPHILS % (AUTO) 0.6 % (0-1); EOSINOPHILS # (AUTO) 0.3 X10'3 (0-0.9); EOSINOPHILS % (AUTO) 3.7 % (0-6); HEMATOCRIT 43.1 % (42.0-52.0); HEMOGLOBIN 14.6 g/dl (14.0-17.9); LYMPHOCYTES # (AUTO) 2.1 X10'3 (1.1-4.8); LYMPHOCYTES % (AUTO) 26.2 % (21-51); MEAN CORPUSCULAR HEMOGLOBIN 32.6 PG (27.0-31.0); MEAN CORPUSCULAR HGB CONC 33.8 g/dL (33.0-36.5); MEAN CORPUSCULAR VOLUME 96.3 FL (78-98); MEAN PLATELET VOLUME 9.1 FL (7.4-10.4); MONOCYTES # (AUTO) 0.8 X10'3 (0-0.9); MONOCYTES % (AUTO) 10.5 % (2-12); NEUTROPHILS # (AUTO) 4.7 X10'3 (1.8-7.7); PLATELET COUNT 218 X10'3 (140-440); RED BLOOD COUNT 4.48 X10'6 (4.70-6.10); RED CELL DISTRIBUTION WIDTH 13.7 % (11.5-14.5); WHITE BLOOD COUNT 7.9 X10'3 (4.5-11.0)
[2022-07-07 14:41] LABS: APTT 24 SECONDS (22-32)
[2022-07-07 14:43] LABS: ALANINE AMINOTRANSFERASE 24 U/L (12-78); ALBUMIN 3.5 G/DL (3.4-5.0); ALBUMIN/GLOBULIN RATIO 0.8 (1.1-1.5); ALKALINE PHOSPHATASE 170 IU/L (46-116); ANION GAP 4 (8-16); ASPARTATE AMINO TRANSFERASE 24 U/L (10-37); BILIRUBIN,TOTAL 0.9 MG/DL (0.1-1.0); BLOOD UREA NITROGEN 14 MG/DL (7-18); BUN/CREATININE RATIO 11.9 (5.4-32.0); CHLORIDE 104 MMOL/L (99-107); CREATININE 1.18 MG/DL (0.60-1.10); GLUCOSE 130 MG/DL (70-104); POTASSIUM 3.9 MMOL/L (3.5-5.1); SODIUM 138 MMOL/L (135-145); TOTAL CARBON DIOXIDE 30.4 MMOL/L (24-32); TOTAL PROTEIN 7.8 G/DL (6.4-8.2); eGFR 59 ML/MIN
[2022-07-07] MEDS ORDERED: iohexol 300mg/ml 100ml inj. ONE (14:46)
== END 2022-07-07 16:55 | disposition home or self-care (01) ==
LOC: ER 12:23
DX: Z04.3 Encounter for examination and observation following other accident (principal); F12.90 Cannabis use, unspecified, uncomplicated; F15.20 Other stimulant dependence, uncomplicated; W19.XXXA Unspecified fall, initial encounter; Y93.89 Activity, other specified; Y92.89 Other specified places as the place of occurrence of the external cause; Y99.8 Other external cause status
CPT/HCPCS: 36415; 71046; 74177; 80053; 85025; 85610; 85730; 99285; J3490; Q9967

== ENCOUNTER 2023-06-30 08:16 | Emergency (ER) | payer MEDICARE, MEDICAID ==
[~2023-06-30] VITALS: Ht 175.3 cm; Wt 69.3 kg
[2023-06-30] MEDS: proparacaine 0.5% ophthalmic drops 15ml LEFTEYE ONE (09:20)
[2023-06-30 10:29] VITALS: BP 118/60; PULSE 70; RESP 16; TEMP 97.7; O2SAT 96
== END 2023-06-30 10:30 | disposition home or self-care (01) ==
LOC: ER 08:16
DX: G43.809 Other migraine, not intractable, without status migrainosus (principal); H11.002 Unspecified pterygium of left eye; F12.90 Cannabis use, unspecified, uncomplicated; F15.90 Other stimulant use, unspecified, uncomplicated; Z90.49 Acquired absence of other specified parts of digestive tract; Z98.890 Other specified postprocedural states; Z79.82 Long term (current) use of aspirin; Z79.899 Other long term (current) drug therapy
CPT/HCPCS: 65222; 99284

== ENCOUNTER 2023-12-27 12:10 | Emergency (ER) | payer MEDICARE, MEDICAID ==
[~2023-12-27] VITALS: Ht 170.2 cm; Wt 62.0 kg
[2023-12-27] MEDS: baclofen 10mg tablet PO PRN (13:21)
[2023-12-27] MEDS: acetaminophen 325mg tablet PO ONE (13:22)
[2023-12-27] MEDS: ketorolac trometh. 30mg/ml inj. IM ONE (13:24)
[2023-12-27] MEDS ORDERED: ACET-1995 PO (13:40)
[2023-12-27] MEDS ORDERED: BACL10TA2 PO (13:40)
[2023-12-27] MEDS ORDERED: NAPR-56 PO (13:40)
[2023-12-27 13:58] VITALS: BP 129/67; PULSE 79; RESP 16; TEMP 98.1; O2SAT 97
== END 2023-12-27 13:59 | disposition home or self-care (01) ==
LOC: ER 12:11
DX: M54.50 Low back pain, unspecified (principal); F12.90 Cannabis use, unspecified, uncomplicated; F15.90 Other stimulant use, unspecified, uncomplicated; Z79.82 Long term (current) use of aspirin; Z79.899 Other long term (current) drug therapy; Z90.49 Acquired absence of other specified parts of digestive tract
CPT/HCPCS: 96372; 99284; J1885

== ENCOUNTER 2024-11-03 09:45 | Outpatient (CLI) | payer MEDICARE, MEDICAID ==
[~2024-11-03 09:45] MED LIST changes: +BACL10TA2 PO
--- NOTE | 2024-11-04 07:24 | RADIOLOGY REPORT ---
ULTRASOUND SOFT TISSUE HEAD AND NECK CLINICAL INDICATION: Abnormal TSH TECHNIQUE: Multiple real time sonographic images of the thyroid were obtained. FINDINGS: The right thyroid gland measures 4 cm. The left thyroid gland measures approximately 4 cm. The isthmus measures 0.5 cm. Bilateral TI-RADS 3 nodules measuring up to 3 cm. FNA of the right upper thyroid pole nodule is recommended. TI-RADS 3 nodules measuring up to 1.8 cm in the left thyroid lobe. Follow-up in 1 year. IMPRESSION: Bilateral TI-RADS 3 nodules measuring up to 3 cm. FNA of the right upper thyroid pole nodule is recommended. TI-RADS 3 nodules measuring up to 1.8 cm in the left thyroid lobe. Follow-up in 1 year. [employer] TI-RADS Categories and Recommendations (2017): TR1: 0 points, Benign, No FNA TR2: 2 points, Not suspicious, No FNA TR3: 3 points, Mildly suspicious, FNA if > or = 2.5 cm, Follow if > or = 1.5 cm TR4: 4-6 points, Moderately Suspicious, FNA if > or = 1.5 cm, Follow if > or = 1.0 cm TR5: 7+ points, Highly Suspicious, FNA if > or = 1.0 cm, Follow if > or = 0.5 cm Follow-up ultrasound guidelines: TR5: yearly for 5 years, if no growth or change in TI-RADS level TR4: at 1, 2, 3 and 5 years, if no growth or change in TI-RADS level TR3: at 1, 3 and 5 years, if no growth or change in TI-RADS level If increased but below threshold for FNA, repeat in one year. Source: ACR Thyroid Imaging, Reporting and Data System (TI-RADS): White Paper of the [employer] TI-RADS Committee. Mathew et al., J Am Venu Radiol 2017;14:587-595. M TALBOT
== END 2024-11-03 23:59 | disposition home or self-care (01) ==
LOC: RAD 09:45
PROVIDERS: ATTEND General Practice
DX: E04.2 Nontoxic multinodular goiter (principal); R79.89 Other specified abnormal findings of blood chemistry
CPT/HCPCS: 76536

== ENCOUNTER 2024-12-03 10:44 | Outpatient (CLI) | payer MEDICARE, MEDICAID ==
--- NOTE | 2024-12-03 11:58 | RADIOLOGY REPORT ---
EXAM: DI HIP,UNI 4VWS (INCLUDE PELVIS) CLINICAL INDICATION: HIP PAIN TECHNIQUE: DI HIP,UNI 4VWS (INCLUDE PELVIS) Comparison: None FINDINGS/IMPRESSION: There is no evidence of acute fracture or dislocation. Moderate bilateral hip osteoarthritis. The alignment is anatomical. There is no radiopaque foreign body.
== END 2024-12-03 23:59 | disposition home or self-care (01) ==
LOC: RAD 10:44
PROVIDERS: ATTEND General Practice
DX: M16.0 Bilateral primary osteoarthritis of hip (principal); M25.551 Pain in right hip
CPT/HCPCS: 73503